=== PATIENT | male | born 1970 | race Caucasian/White ===

== ENCOUNTER 2025-09-26 07:06 | Emergency (ER) | payer MEDICARE ==
[2025-09-26 07:26] VITALS: TEMP 97
--- NOTE | 2025-09-26 07:56 | ERPHSYRPT ---
- History of Present Illness Time Seen by Provider: 09/26/25 07:25 Source: patient Patient Subjective Stated Complaint: patient states that he has some medications issues, patient states he has a bruise to left upper arm, patient states he was thinking he may have a blood clot to left arm Triage Nursing Assessment: patient presents to ed via private vehicle, patient able to ambualte into ed without complication, patient alert and oriented x 4, skin pwd, patient has bruising noted to left upper and right upper arms, patient denies any other symptoms at this time Physician History: CC: needing medication refills, arm bruises HPI: history from nursing triage notes, patient He has been travelling. Notes he does not have a residence but stays in [place] or recreational areas in his car. He notes he had been to [place] and [place]. Then here in [place], with being in [place] in June and [place] in August. He notes he is back in town today for some legal issues. Does not have a PCM but would like to have refills on his losartan 25 and synthroid 75 . He does have Rx for Olazapine 10 mg BID , trazadone 50 mg QHS but does not take these. Also Depakote ER 500 BID , but he reports that he had dysphoria on the 500 mg dose, but has cut back to 250 mg twice daily. These Rx refills were from 06/27/2025 from the [facility] in [place]. currently transient/in between residences. He lives in his vehicle and notes he is travelling to [place] today. He has concern about bruising on the LUE. He describes this has been constused on the volar aspect for many days but he does not know why. He has similar bruising on the Right upper extremity. He is not worried about the right side because he notes this side is related to using his RUE / daily impact type injuries. For the bruising he has been taking extra doses of his 81 mg ASA but the bruising is still present. We have discussed conservative management for the contusions including warm compresses and gentle massage. PMHx includes HTN intermittent insomnia schizophrenia 1 PPD smoker trying to cut back slowly His pharmacy is [facility]. Pulseox: 99 % on RA normal ROS Const: No fever, chills, sweats. No weakness / malaise. HEENT: No sore throat, runny nose, congestion, ear ache. CV: No chest pain, palpitations, shortness of breath, cough. No edema to the ankles / legs. Abdom: No nausea, vomiting, diarrhea, or constipation. No abdominal pain. : No dysuria, frequency, or odor. Skin: no unusual rashes. Heme: No other unusual bruising or bleeding. Lymph: No swelling to glands. Neuro: No headache, dizziness, numbness. No hemoptysis, hematemesis, hematochezia, hematuria. Allergies/Adverse Reactions: No Known Drug Allergies Allergy (Unverified 09/26/25 07:19) Home Medications: Buspirone HCl [Bucapsol] 7.5 mg PO DAILY 09/26/25 [History] Divalproex Sodium [Divalproex Sodium ER] 500 mg PO DAILY 09/26/25 [History] Levothyroxine Sodium 100 Mcg [Synthroid 100 Mcg] 100 mcg PO DAILY 09/26/25 [History] OLANZapine [Zyprexa] 10 mg PO DAILY 09/26/25 [History] Hx Tetanus, Diphtheria Vaccination/Date Given: Yes Travel Risk - International Travel Have you traveled outside of the country in past 3 weeks: No - Emerging Infectious Disease Are you exhibiting symptoms associated with any current EIDs: No - Past Medical History Pertinent Past Medical History: Yes (reviewed with patien) Neurological History: No Pertinent History Cardiac History: Hypertension Endocrine Medical History: Hypothyroidism GI Medical History: GERD Psycho-Social History: Other Other Medical History: schizophrenia/psychosis - Past Surgical History Past Surgical History: No - Social History Smoking Status: Current every day smoker Exposure to second hand smoke: Yes Drug Use: none - Social Determinants of Health Will the patient participate in the screening: Yes Do you worry about a steady place to live?: No Do you have any problems with any of the following?: No known problems In the past 12 months,have you had to go without utilities?: No Transportation Issues: No Has anyone in your support network made you feel unsafe?: No Have you or anyone in your house had to go w/o enough food: No - Nursing Vital Signs Nursing Vital Signs: Initial Vital Signs Temperature 97 F 09/26/25 07:07 Pulse Rate 75 09/26/25 07:07 Respiratory Rate 14 09/26/25 07:07 Blood Pressure 187/103 09/26/25 07:07 O2 Sat by Pulse Oximetry 99 09/26/25 07:07 Pain Scale Pain Intensity 0 - Physical Exam General Appearance: other SpO2 Interpretation: normal SpO2: 99 O2 Delivery: Room Air Procedures - Additional Procedures Progress: Physical exam NAD, A&O, nontoxic. Pleasant. No pain distress. No physiologic distress. Appears _to be adult with medical problems but worried about the refills. Eyes: EOMI, nonicteric, conjunctiva clear Throat: Moist mucous membranes. Symmetric rise of palate. No pharynx erythema. Tonsils normal size and without erythema or exudate. Neck: supple, spontaneous ROM, nontender. trachea midline. No cervical or supraclavicular lymphadopathy. Thyroid nontender and normal size. Back: No pain on percussion. No muscle spasm. Nontender palpation. No kyphosis. Lungs: CTA, nl effort, no rales, crackles, rhonchi, wheezes. Normal resonance on percussion. Cough _mildly harsh at the bases. Cardiac: RRR S1, S2, without murmur or rub. Posterior tibial, Pedal pulses 2/4 bilaterally. No ankle or pretibial edema. Skin: warm, dry, normal turgor. no gross rash. He does have bruising on the UEs bilaterally. Primarily olecrenon areas and forearms. Confluent bruises. Yellow margins, purple centers. Seems to be about 1-2% Body Surface area size, bilaterally, but fading. Abdom: Bowel sounds present and active x 4 Quadrants. Normal tympany to percussion. Soft. Non-distended. Nontender, no masses or organomegaly. No rebound, rigidity, or guarding. No pulsatile masses. Nonsurgical. Negative Yovanny's signs bilaterally Good muscle tone and moves all extremities. - Course Nursing assessment & vital signs reviewed: Yes Ordered Tests: Active Orders 24 hr Category Date Time Status CBC W DIFF Stat Lab 09/26/25 08:20 Completed ETHYL ALCOHOL Stat Lab 09/26/25 08:20 Completed Hepatic Function Panel Stat Lab 09/26/25 08:20 Completed PROTIME WITH INR Stat Lab 09/26/25 08:20 Completed PTT Stat Lab 09/26/25 08:20 Completed RENAL PANEL Stat Lab 09/26/25 08:20 Completed SALICYLATE Stat Lab 09/26/25 08:20 Completed TSH, 3RD Generation Stat Lab 09/26/25 08:20 Completed Lab/Rad Data: Laboratory Result Diagrams 09/26/25 08:20 09/26/25 08:20 Laboratory Results 09/26/25 09/26/25 09/26/25 Range/Units 08:20 08:20 08:20 WBC (4.23-9.07) x10^3/uL RBC (4.63-6.08) x10^6/uL Hgb (13.7-17.5) g/dL Hct (40.1-51.0) % MCV (79.0-92.2) fL MCH (25.7-32.2) pg MCHC (32.3-36.5) g/dL RDW (11.6-14.4) % Plt Count (163-337) x10^3/uL MPV (9.4-12.4) fL Gran % (34.0-67.9) % Immature Gran % (Auto) (0.001-0.429) % Nucleat RBC Rel Count (0.00-0.2) % Eos # (Auto) (0.04-0.54) x10^3/uL Immature Gran # (Auto) (0.001-0.031) x10^3u/L Absolute Lymphs (auto) (1.32-3.57) x10^3/uL Absolute Monos (auto) (0.30-0.82) x10^3/uL Absolute Nucleated RBC (0.00-0.012) x10^3u/L Lymphocytes % (21.8-53.1) % Monocytes % (5.3-12.2) % Eosinophils % (0.8-7.0) % Basophils % (0.2-1.2) % Absolute Granulocytes (1.78-5.38) x10^3/uL Basophils # (0.01-0.08) x10^3/uL PT 11.1 (9.4-12.5) SECONDS INR 0.99 (0.8-3.0) APTT 32.2 (25.1-36.5) SECONDS Sodium 135 (135-145) mmol/L Potassium 4.0 (3.5-5.1) mmol/L Chloride 102 (98-107) mmol/L Carbon Dioxide 27 (22-30) mmol/L Anion Gap 10.5 (5-15) MEQ/L BUN 9 (9-20) mg/dL Creatinine 0.76 (0.66-1.25) mg/dL Estimated GFR 106.2 ML/MIN Glucose 95 (74-106) mg/dL Calcium 9.3 (8.4-10.2) mg/dL Phosphorus 3.9 (2.5-4.5) mg/dL Total Bilirubin 0.20 (0.2-1.3) mg/dL Direct Bilirubin 0 (0.0-0.4) mg/dL AST 35 (17-59) U/L ALT 28 (0-50) U/L Alkaline Phosphatase 95 (38-126) U/L Serum Total Protein 7.6 (6.3-8.2) g/dL Albumin 4.5 (3.5-5.0) g/dL TSH 3rd Generation 2.139 (0.470-4.680) mIU/L Salicylates < 1.0 L (2-20) mg/dL Valproic Acid 26.9 L (50-100) ug/mL Ethyl Alcohol < 10 (0-10) mg/dL 09/26/25 Range/Units 08:20 WBC 7.8 (4.23-9.07) x10^3/uL RBC 4.93 (4.63-6.08) x10^6/uL Hgb 15.3 (13.7-17.5) g/dL Hct 47.2 (40.1-51.0) % MCV 95.7 H (79.0-92.2) fL MCH 31.0 (25.7-32.2) pg MCHC 32.4 (32.3-36.5) g/dL RDW 12.5 (11.6-14.4) % Plt Count 212 (163-337) x10^3/uL MPV 10.5 (9.4-12.4) fL Gran % 67.6 (34.0-67.9) % Immature Gran % (Auto) 0.5 H (0.001-0.429) % Nucleat RBC Rel Count 0.0 (0.00-0.2) % Eos # (Auto) 0.09 (0.04-0.54) x10^3/uL Immature Gran # (Auto) 0.04 H (0.001-0.031) x10^3u/L Absolute Lymphs (auto) 1.76 (1.32-3.57) x10^3/uL Absolute Monos (auto) 0.59 (0.30-0.82) x10^3/uL Absolute Nucleated RBC 0.00 (0.00-0.012) x10^3u/L Lymphocytes % 22.6 (21.8-53.1) % Monocytes % 7.6 (5.3-12.2) % Eosinophils % 1.2 (0.8-7.0) % Basophils % 0.5 (0.2-1.2) % Absolute Granulocytes 5.27 (1.78-5.38) x10^3/uL Basophils # 0.04 (0.01-0.08) x10^3/uL PT (9.4-12.5) SECONDS INR (0.8-3.0) APTT (25.1-36.5) SECONDS Sodium (135-145) mmol/L Potassium (3.5-5.1) mmol/L Chloride (98-107) mmol/L Carbon Dioxide (22-30) mmol/L Anion Gap (5-15) MEQ/L BUN (9-20) mg/dL Creatinine (0.66-1.25) mg/dL Estimated GFR ML/MIN Glucose (74-106) mg/dL Calcium (8.4-10.2) mg/dL Phosphorus (2.5-4.5) mg/dL Total Bilirubin (0.2-1.3) mg/dL Direct Bilirubin (0.0-0.4) mg/dL AST (17-59) U/L ALT (0-50) U/L Alkaline Phosphatase (38-126) U/L Serum Total Protein (6.3-8.2) g/dL Albumin (3.5-5.0) g/dL TSH 3rd Generation (0.470-4.680) mIU/L Salicylates (2-20) mg/dL Valproic Acid (50-100) ug/mL Ethyl Alcohol (0-10) mg/dL - Progress Progress Note: 09/26/25 07:47 He has had labwork 2 weeks ago somewhere in [place] but does not have copies. He does have the upper extremity bruising that he does not recall exactly the cause, but by his description may be related to chronic use/daily use. He has been taking increased tablets of his baby aspirin in order to help "dissolve" the bruises. He is noncompliant with several of his medications. Will complete screening chemistries including TSH , CBC, and coags. I plan to refill his losartan 25 mg and synthroid 75 mcg but will await lab results [facility] is [facility]. He notes he is going to return the medications he does not use to the prescribing facility / extension. 09/26/25 10:28 [place] with patient the slight elevation of the MCV nothing I am concerned about at this time that needs additional ER workup but I have recommended he take a multivitamin. Additionally we have reviewed his remaining chemistries are nonfocal. I will have him follow-up with his new primary care provider once he moves to [place]. I have refilled his prescriptions for the losartan and the levothyroxine as noted above. NAD, A&O, nontoxic. Pleasant. No pain distress. No physiologic distress. Appears to be a well adult with a minor symptom . Eyes: spontaneous EOMI, nonicteric, conjunctiva clear Throat: Moist mucous membranes. Neck: spontaneous ROM, without pain. Lungs: no distress, nl effort Skin: warm, dry, normal turgor. no gross rash. Good muscle tone and moves all extremities spontaneously. - Departure Departure Disposition: Home Clinical Impression: Hypertension, Hypothyroidism, Schizophrenia Condition: Stable Critical Care Time: No Referrals: DOCTOR,NO FAMILY [Primary Care Provider, UNKNOWN] - Follow up/PCP as directed Instructions: High blood pressure in adults, Hypothyroidism (underactive thyroid) Additional Instructions: Your blood pressure was elevated today -- Please check and record 3-4 blood pressures per day for 3-4 weeks and have your doctor review the record and ask if you need any additional testing or treatment You need to follow-up with a primary care provider in 3 to 4 weeks. Please contact a primary care provider office in order to establish care Please continue to cut back and stop smoking Rest. Plenty fluids. [place], healthy fat, low-cholesterol, nonspicy, low caffeine diet Return for concerns problems questions fainting chest pain, palpitations, persistent vomiting. Prescriptions: Losartan Potassium 25 mg PO DAILY #30 tablet Levothyroxine Sodium 75 Mcg [Synthroid 75 Mcg] 75 mcg PO DAILY #30 tablet
[2025-09-26 07:57] VITALS: O2SAT 99
[2025-09-26 08:26] LABS: BASOPHIL % 0.5 % (0.2-1.2); Basophil (Absolute #) 0.04 x10^3/uL (0.01-0.08); Eosinophil (Absolute #) 0.09 x10^3/uL (0.04-0.54); Hematocrit 47.2 % (40.1-51.0); Hemoglobin 15.3 g/dL (13.7-17.5); IMMATURE GRAN # 0.04 x10^3u/L (0.001-0.031); IMMATURE GRAN % 0.5 % (0.001-0.429); Lymphocyte (Absolute #) 1.76 x10^3/uL (1.32-3.57); Mean Corpuscular Hemoglobin 31.0 pg (25.7-32.2); Mean Corpuscular Hgb Concent. 32.4 g/dL (32.3-36.5); Monocyte (Absolute #) 0.59 x10^3/uL (0.30-0.82); NUCLEATED RBC # 0.00 x10^3u/L (0.00-0.012); NUCLEATED RBC % 0.0 % (0.00-0.2); Platelet Count 212 x10^3/uL (163-337); Red Blood Count 4.93 x10^6/uL (4.63-6.08); White Blood Count 7.8 x10^3/uL (4.23-9.07)
[2025-09-26 08:43] LABS: INR 0.99 (0.8-3.0); PROTIME 11.1 SECONDS (9.4-12.5); PTT 32.2 SECONDS (25.1-36.5)
[2025-09-26 09:11] LABS: Calcium 9.3 mg/dL (8.4-10.2); Carbon Dioxide 27 mmol/L (22-30); Creatinine 1 0.76 mg/dL (0.66-1.25); EST GLOMERULAR FILTRATION RATE 106.2 ML/MIN; ETHYL ALCOHOL < 10 mg/dL (0-10); Glucose 95 mg/dL (74-106); Potassium 4.0 mmol/L (3.5-5.1); SGOT/AST 35 U/L (17-59); SGPT/ALT 28 U/L (0-50); Total Protein 7.6 g/dL (6.3-8.2)
[2025-09-26 10:11] VITALS: RESP 16
[2025-09-26 10:43] VITALS: BP 178/90; PULSE 78
== END 2025-09-26 10:43 | disposition home or self-care (01) ==
LOC: ED 07:06
DX: I10 Essential (primary) hypertension (principal); E03.9 Hypothyroidism, unspecified; F20.9 Schizophrenia, unspecified; Z79.899 Other long term (current) drug therapy; Z72.0 Tobacco use; Z59.02 Unsheltered homelessness